=== PATIENT | female | born 1940 | race Caucasian/White ===

== ENCOUNTER → 2017-04-22 | Day surgery (SDC) | payer MEDICARE ==
[~2017-04-22] VITALS: Ht 157.5 cm; Wt 67.5 kg
[~2017-04-22] MED LIST: AMLO2.5T PO; AMOX500C PO; ASPI-110 PO; ASPI1TAB69 PO; BETA0.0557 TOPICAL; CYCLOPENTOLATE HCL 1% OPHT SOLN 2 ML BTL ONE; ENOX30P SQ; FLEC100T PO; FLURBIPROFEN 0.03% OPHT SOLN 2.5 ML BTL ONE; FLUT1SPR5 EACH NARE; GLYC1TAB17 PO; HYDR-3580 PO; HYDR25TA5 PO; LIDOCAINE HCL 2% JELLY 5 ML SYRINGE ONE; LIPI40TA PO; METO50TA11 PO; NAPR500 PO; PHENYLEPHRINE HCL 10% OPTH SOLN 5 ML BTL ONE; PROPARACAINE HCL 0.5% OPHT SOLN 15 ML BTL ONE; ROPI0.5T PO; SODIUM CHLORID 0.9% 500 ML INJ 500 ML ONE; TOBRAMYCIN/DEXAMETHASONE OPTH OINT 3.5 GM TUBE ONE; TROPICAMIDE 1% OPHT SOLN 15 ML BTL ONE
[2017-04-22 07:05] VITALS: BP 170/97; PULSE 65; RESP 16; TEMP 98.4; O2SAT 93
[2017-04-22] MEDS: TOBRAMYCIN/DEXAMETHASONE OPTH OINT 3.5 GM TUBE ONE ×2 (08:08→08:55)
[2017-04-22] MEDS: LIDOCAINE HCL 1% PF 30 ML VIAL ONE ×3 (08:08→08:42)
[2017-04-22 09:05] VITALS: TEMP 98.6
[2017-04-22 09:22] VITALS: BP 174/70; PULSE 69; RESP 14; O2SAT 97
--- NOTE | 2017-04-22 20:21 | MP ---
cc: VIKASH RAMOS M.D. [facility]# [id number] DATE OF SURGERY 04/22/17 POSTOPERATIVE DIAGNOSIS: Visually significant cataract left eye. OPERATION: Phacoemulsification with posterior chamber lens implantation, left eye. SURGEON: Vikash Ramos MD ANESTHESIA: Topical with MAC. COMPLICATIONS: None. PROCEDURE: After informed consent was obtained, the patient was brought into the operative suite and placed on appropriate monitors by the Anesthesia Service. The patient had been given dilating drops and topical lidocaine gel in the holding area. The patient's operative eye was then prepped and draped in the usual sterile fashion. A wire lid speculum was placed. Further 2% lidocaine was then dropped on the cornea prior to beginning the procedure. A paracentesis incision was made in the peripheral cornea with a 1 mm little keratome. The anterior chamber was filled with viscoelastic. The anterior chamber was then entered through a stepped, clear corneal incision using a sharp 3 mm little keratome. A circular tear capsulorrhexis was then made with a bent needle cystitome. Following hydrodissection of the lens nucleus with balance saline, phaco-emulsification of the nucleus was performed using a modified chopping technique. The remaining cortex was removed with irrigation/aspiration. The prior two procedures were both performed using the handpieces of the [employer] phaco unit. The capsular bag was then filled with viscoelastic. The intraocular lens was then injected into the capsular bag and positioned. The type of intraocular lens and its power can be found elsewhere in this chart. The remaining viscoelastic was then removed from the anterior chamber with the IA handpiece. The anterior chamber was reformed with balanced saline. The wound was then closed securely with stromal hydration. It was found to be watertight to an intraocular pressure of at least 30 mmHg by palpation. A small amount of balanced salt solution was then removed through the paracentesis site and the intraocular pressure at the end of the case was approximately 20 by palpation. All drapes were then removed. TobraDex ointment was then placed in the eye, which was closed beneath a semi-pressure patch dressing. The patient tolerated this procedure well and left the operating room awake and alert. The patient is to follow-up in my office in the morning. ADDENDUM After the clear corneal incisions were sealed watertight, an 8 mm limbal relaxing incision was made with a 600 micron little blade, centered around the 90 degree [place]. MD MATTHEW Parker/ /10:20 AM /8:19 PM
== END | disposition home or self-care (01) ==
LOC: PHSDC 06:07
PROVIDERS: ATTEND Optometrist Occupational Vision
DX: H26.9 Unspecified cataract (principal); I10 Essential (primary) hypertension; I48.0 Paroxysmal atrial fibrillation; M81.0 Age-related osteoporosis without current pathological fracture; L40.9 Psoriasis, unspecified; E78.5 Hyperlipidemia, unspecified; Z88.2 Allergy status to sulfonamides; Z88.1 Allergy status to other antibiotic agents; Z91.040 Latex allergy status; Z88.8 Allergy status to other drugs, medicaments and biological substances
CPT/HCPCS: 66984; J7040; V2632; 82948

== ENCOUNTER → 2017-06-03 | Day surgery (SDC) | payer MEDICARE ==
[~2017-06-03] VITALS: Ht 158.8 cm; Wt 65.9 kg
[~2017-06-03] MED LIST changes: -AMOX500C PO; -ASPI1TAB69 PO; +CHLORHEXIDINE GLUCONATE 2 % 1 PACK (2 CLOTHS) TOPICAL PRN; -ENOX30P SQ; -FLEC100T PO; -GLYC1TAB17 PO; -HYDR-3580 PO; +INSULIN HUMAN REGULAR 1,000 UNITS/10 ML VIAL SQ PRN; +LACTATED RINGER'S 1000 ML IV PRN; +LIDOCAINE HCL 1% PF 30 ML VIAL ONE; +LIDOCAINE HCL 2% JELLY 5 ML SYRINGE TOPICAL ONE; +METOPROLOL TARTRATE 25 MG TAB PO PRN; -NAPR500 PO; +POVIDONE IODINE 5% (ANTISEPSIS KIT) 4 APPLICATIONS EACH NARE PRN; +PROPARACAINE HCL 0.5% OPHT SOLN 15 ML BTL RIGHT EYE ONE; -SODIUM CHLORID 0.9% 500 ML INJ 500 ML ONE; +SODIUM CHLORID 0.9% 500 ML IV PRN; +TOBRAMYCIN 0.3%/DEXAMETHASONE 0.1% OPHT SUSP 5 ML BTL ONE
[2017-06-03] MEDS: TROPICAMIDE 1% OPHT SOLN 15 ML BTL RIGHT EYE SCH ×4 (06:40→06:55)
[2017-06-03] MEDS: FLURBIPROFEN 0.03% OPHT SOLN 2.5 ML BTL RIGHT EYE SCH ×4 (06:40→06:55)
[2017-06-03] MEDS: PHENYLEPHRINE HCL 10% OPTH SOLN 5 ML BTL RIGHT EYE SCH ×4 (06:40→06:55)
[2017-06-03] MEDS: CYCLOPENTOLATE HCL 1% OPHT SOLN 2 ML BTL RIGHT EYE SCH ×4 (06:40→06:55)
[2017-06-03 06:50] VITALS: BP 149/71; PULSE 64; RESP 20; TEMP 98.1; O2SAT 97
[2017-06-03 08:21] VITALS: TEMP 97.7
[2017-06-03 08:40] VITALS: BP 149/67; PULSE 69; RESP 14; O2SAT 96
--- NOTE | 2017-06-03 20:11 | MP ---
cc: VIKASH RAMOS MD [facility] #[id number] DATE OF SURGERY 06/03/17 POSTOPERATIVE DIAGNOSIS: Visually significant cataract right eye. OPERATION: Phacoemulsification with posterior chamber lens implantation, right eye. SURGEON: Vikash Ramos MD ANESTHESIA: Topical with MAC. COMPLICATIONS: None. PROCEDURE: After informed consent was obtained, the patient was brought into the operative suite and placed on appropriate monitors by the Anesthesia Service. The patient had been given dilating drops and topical lidocaine gel in the holding area. The patient's operative eye was then prepped and draped in the usual sterile fashion. A wire lid speculum was placed. Further 2% lidocaine was then dropped on the cornea prior to beginning the procedure. A paracentesis incision was made in the peripheral cornea with a 1 mm little keratome. The anterior chamber was filled with viscoelastic. The anterior chamber was then entered through a stepped, clear corneal incision using a sharp 3 mm little keratome. A circular tear capsulorrhexis was then made with a bent needle cystitome. Following hydrodissection of the lens nucleus with balance saline, phaco-emulsification of the nucleus was performed using a modified chopping technique. The remaining cortex was removed with irrigation/aspiration. The prior two procedures were both performed using the handpieces of the [employer] phaco unit. The capsular bag was then filled with viscoelastic. The intraocular lens was then injected into the capsular bag and positioned. The type of intraocular lens and its power can be found elsewhere in this chart. The remaining viscoelastic was then removed from the anterior chamber with the IA handpiece. The anterior chamber was reformed with balanced saline. The wound was then closed securely with stromal hydration. It was found to be watertight to an intraocular pressure of at least 30 mmHg by palpation. A small amount of balanced salt solution was then removed through the paracentesis site and the intraocular pressure at the end of the case was approximately 20 by palpation. All drapes were then removed. TobraDex ointment was then placed in the eye, which was closed beneath a semi-pressure patch dressing. The patient tolerated this procedure well and left the operating room awake and alert. The patient is to follow-up in my office in the morning. ADDENDUM After the clear corneal incisions were sealed watertight, an 8 mm limbal relaxing incision was made with a 600 Micron little blade, centered around the 90 degree [place]. MD MATTHEW Parker/ /10:20 AM /8:09 PM
== END | disposition home or self-care (01) ==
LOC: PHSDC 06:04
PROVIDERS: ATTEND Optometrist Occupational Vision
DX: H25.811 Combined forms of age-related cataract, right eye (principal); H43.813 Vitreous degeneration, bilateral; G25.81 Restless legs syndrome; I70.0 Atherosclerosis of aorta; E04.2 Nontoxic multinodular goiter; K21.9 Gastro-esophageal reflux disease without esophagitis; I10 Essential (primary) hypertension; E78.5 Hyperlipidemia, unspecified; J30.0 Vasomotor rhinitis; K58.9 Irritable bowel syndrome, unspecified; I48.0 Paroxysmal atrial fibrillation; N81.4 Uterovaginal prolapse, unspecified
CPT/HCPCS: 00142; 66984; J7040; V2632

== ENCOUNTER 2017-06-11 23:56 | Emergency (ER) | payer MEDICARE ==
[~2017-06-11] VITALS: Ht 160 cm; Wt 68.8 kg
[~2017-06-11 23:56] MED LIST changes: -CHLORHEXIDINE GLUCONATE 2 % 1 PACK (2 CLOTHS) TOPICAL PRN; -CYCLOPENTOLATE HCL 1% OPHT SOLN 2 ML BTL ONE; -FLURBIPROFEN 0.03% OPHT SOLN 2.5 ML BTL ONE; -INSULIN HUMAN REGULAR 1,000 UNITS/10 ML VIAL SQ PRN; -LACTATED RINGER'S 1000 ML IV PRN; -LIDOCAINE HCL 1% PF 30 ML VIAL ONE; -LIDOCAINE HCL 2% JELLY 5 ML SYRINGE ONE; -LIDOCAINE HCL 2% JELLY 5 ML SYRINGE TOPICAL ONE; -METOPROLOL TARTRATE 25 MG TAB PO PRN; -PHENYLEPHRINE HCL 10% OPTH SOLN 5 ML BTL ONE; -POVIDONE IODINE 5% (ANTISEPSIS KIT) 4 APPLICATIONS EACH NARE PRN; -PROPARACAINE HCL 0.5% OPHT SOLN 15 ML BTL ONE; -PROPARACAINE HCL 0.5% OPHT SOLN 15 ML BTL RIGHT EYE ONE; -SODIUM CHLORID 0.9% 500 ML IV PRN; -TOBRAMYCIN 0.3%/DEXAMETHASONE 0.1% OPHT SUSP 5 ML BTL ONE; -TOBRAMYCIN/DEXAMETHASONE OPTH OINT 3.5 GM TUBE ONE; -TROPICAMIDE 1% OPHT SOLN 15 ML BTL ONE
[2017-06-12 00:01] VITALS: BP 129/62; PULSE 72; RESP 16; TEMP 97.5; O2SAT 96
--- NOTE | 2017-06-12 00:57 | RADRPT ---
EXAM DATE/TIME: 06/12/2017 00:45 [place] COMPARISON: No previous studies available for comparison. INDICATIONS : Left wrist pain post fall. MEDICAL HISTORY : Arthritis. SURGICAL HISTORY : None. ENCOUNTER: Initial ACUITY: 1 day PAIN SCORE: 10/10 LOCATION: Left upper extremity FINDINGS: There are severe degenerative changes of the thumb basal joint. There is an impacted fracture of the distal radial metaphysis identified without definite intra-articular extension. No significant angula tion. Soft tissue swelling is noted. CONCLUSION: Distal radius fracture. Larry Graf MD on June 12, 2017 at 0:55 Board Certified Radiologist. This report was verified electronically.
--- NOTE | 2017-06-12 01:35 | PD ---
HPI Chief Complaint: Injury Time Seen by Provider: 01:26 Travel History International Travel<30 days: No Contact w/Intl Traveler<30days: No Traveled to known affect area: No History of Present Illness HPI 77-year-old female presents to the emergency department by private transportation the care of her spouse for evaluation of left wrist injury. Patient states approximately 11:30 PM she tripped over something in the floor in her bedroom and fell forward injuring her left wrist. Patient is right- handed. Patient does not report any other injury. Patient denies any upper extremity numbness tingling or weakness shoulder pain elbow pain or hand pain. Patient states she has severe arthritis and has chronic deformity of the wrist and thumb secondary to her arthritis but has noted area of soft tissue swelling since the fall. Patient states pain is 10 over 10 in intensity. Patient denies hitting her head having loss of consciousness injury her neck back chest ribs abdomen pelvis or other extremity. No previous injury to the left wrist. Patient takes no blood thinning agents. Patient took no medications prior to arrival to the emergency department. 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) Cardiovascular Problems: Yes (PALPATATIONS;ATHEROSCLEROSIS OF AORTA;PAT; A.FIB) High Cholesterol: Yes Chemotherapy: No Chest Pain: Yes (CHEST PAIN) Congestive Heart Failure: No COPD: No Cerebrovascular Accident: No Diabetes: No Diminished Hearing: No Endocrine: No Gastrointestinal Disorders: Yes (SPASTIC COLON;DIVERTICULOSIS; GERD; IBS) GERD: No Glaucoma: No Genitourinary: No Headaches: No Hepatitis: No Hiatal Hernia: No Hypertension: Yes Immune Disorder: Yes (psoriasis) Kidney Stones: Yes Medical other: Yes (;RESTLESS LEG SYNDROME) Musculoskeletal: Yes (ARTHRITIS;INTERVERTEBRAL DISC DISORDER;OSTEOPORSIS) Neurologic: Yes (BELLS PALSY) Psychiatric: Yes (ANXIETY) Reproductive: Yes (UTERINE PROLAPSE) Respiratory: No Myocardial Infarction: No Radiation Therapy: No Renal Failure: No Seizures: No Sickle Cell Disease: No Sleep Apnea: No Thyroid Disease: Yes (THYROID NODULE;GOITER) Ulcer: No Tetanus Vaccination: > 5 Years Influenza Vaccination: Yes ?: Not Menopausal: Yes Past Surgical History Abdominal Surgery: No AICD: No Arteriovenous Shunt: No Body Medical Devices: BILATERAL TOTAL KNEE REPLACEMENT, LEFT HIP REPLACEMENT Cardiac Surgery: Yes (ABLATION FOR AFIB) Ear Surgery: No Endocrine Surgery: No Eye Surgery: No Genitourinary Surgery: No Gynecologic Surgery: No Insulin Pump: No Joint Replacement: Yes (BILATERAL KNEES, LEFT HIP) Oral Surgery: Yes Pacemaker: No Thoracic Surgery: No Tonsillectomy: Yes Other Surgery: Yes Social History Alcohol Use: No (DENIES) Tobacco Use: No Substance Use: No (DENIES) Allergies-Medications (Allergen,Severity, Reaction): Coded Allergies: Bactrim (Verified Allergy, Severe, Rash, 06/12/17) Relafen (Verified Allergy, Severe, Hives, 06/12/17) Sulfa (Verified Allergy, Severe, Rash, 06/12/17) Latex (Verified Allergy, Intermediate, Itching, 06/12/17) Nonsteroidal Anti-Inflammatory Agts (Verified Allergy, Mild, PT DENIES ALLERGY, 06/12/17) Celebrex (Verified Adverse Reaction, Severe, HAIR LOSS, 06/12/17) Reported Meds & Prescriptions Reported Meds & Active Scripts Active Zofran Odt (Ondansetron Odt) 4 Mg Tab 4 Mg SL Q6HR PRN Lortab (Hydrocodone-Acetaminophen) 5-325 Mg Tab 0.5-1 Tab PO Q6H PRN Reported Amlodipine (Amlodipine Besylate) 2.5 Mg Tab 2.5 Mg PO DAILY Aspirin 81 (Aspirin) 81 Mg Tabdr 81 Mg PO DAILY Lipitor (Atorvastatin Calcium) 40 Mg Tab 40 Mg PO HS Metoprolol Succinate ER 24 HR (Metoprolol Succinate) 50 Mg Tab 75 Mg PO BID Review of Systems Except as stated in HPI: all other systems reviewed are Neg Physical Exam Narrative GENERAL: Well-developed well-nourished female in no acute distress no respiratory distress; GCS 15 SKIN: Warm and dry. HEAD: Normocephalic. EYES: No scleral icterus. No injection or drainage. NECK: Supple, trachea midline. No JVD or lymphadenopathy. CARDIOVASCULAR: Regular rate and rhythm without murmurs, gallops, or rubs. RESPIRATORY: Breath sounds equal bilaterally. No accessory muscle use. GASTROINTESTINAL: Abdomen soft, non-tender, nondistended. MUSCULOSKELETAL: No cyanosis, or edema. Attention left wrist soft tissue swelling with swan-neck deformity of the thumb capillary refill is brisk and less than 2 seconds per digit thumb apposition intact decreased range of motion of left wrist secondary to pain proximally no deformity at the elbow or shoulder and nontender to direct palpation. Radial and dorsalis pedis pulses 2 + to palpation bilaterally. BACK: Nontender without obvious deformity. No CVA tenderness. Data Data Last Documented VS Vital Signs Date Time Temp Pulse Resp B/P Pulse Ox O2 Delivery O2 Flow Rate FiO2 06/12/17 02:13 76 18 124/66 97 Room Air 06/12/17 00:01 97.5 Orders Wrist, Complete ([id number]) (06/12/17 ) Splint Or Brace Apply/Monitor (06/12/17 01:26) Splint Or Brace Apply/Monitor (06/12/17 01:26) Ice/Cold Pack (06/12/17 01:26) Ondansetron Odt (Zofran Odt) (06/12/17 01:45) Acetamin-Hydrocod 325-5 Mg ([place] 5-325 (06/12/17 01:45) MDM Medical Decision Making Medical Screen Exam Complete: Yes Emergency Medical Condition: Yes Medical Record Reviewed: Yes Interpretation(s) Last Impressions Wrist X-Ray 06/12/17 0000 Signed Impressions: Service Date/Time: Monday, June 12, 2017 00:45 - CONCLUSION: Distal radius fracture. Larry Graf MD Differential Diagnosis Fracture subluxation dislocation arthritis sprain strain Narrative Course Patient presents with soft tissue swelling of the left wrist after a non- syncopal slip and fall with outstretched hand concerning for wrist fracture; imaging study order Imaging study consistent with impaction was fracture of the distal radius without joint involvement or significant angulation; noted to have significant arthritic changes consistent with history of arthritis; ice applied and splinting with short arm volar splint and sling. Patient moving area and will need to follow up closely with orthopedist in her new residence and with [place] when she arrives there the next 2 days. Patient administered Lortab 5 mg IM mouth along with Zofran 4 mg Diagnosis Primary Impression: Left wrist fracture Qualified Code: S62.102A - Left wrist fracture, closed, initial encounter Referrals: Orthopedist 2 days Patient Instructions: General Instructions, Narcotic given in the ED Additional Instructions: Wear splint Apply ice intermittently to areas of soft tissue swelling for first 12-24 hours Use sling Take pain medication as prescribed as needed; use with caution as may impair judgment, delay reaction time, increased risk for fall, or cause constipation Follow-up with orthopedic surgeon call office on Wednesday to schedule follow-up appointment Return to the emergency for for pain swelling or any concerns Med/Other Pt SpecificInfo: Prescription(s) given Scripts Ondansetron Odt (Zofran Odt)4 Mg Tab4 Mg SL Q6HR PRN (Nausea/Vomiting) #10 TAB Ref 0 Prov:Leny Hernandez MD 06/12/17 Hydrocodone-Acetaminophen (Lortab)5-325 Mg Tab0.5-1 Tab PO Q6H PRN (PAIN) #12 TAB Ref 0 Prov:Leny Hernandez MD 06/12/17 Disposition: 01 DISCHARGE HOME Condition: Stable Leny Hernandez MD Jun 12, 2017 01:35
[2017-06-12] MEDS ORDERED: HYDR-3533 PO (01:41)
[2017-06-12] MEDS ORDERED: ZOFR4TAB3 SL (01:41)
[2017-06-12] MEDS ORDERED: ONDANSETRON ODT 4 MG TAB PO ONE (01:45)
[2017-06-12] MEDS ORDERED: ACETAMINOPHEN/HYDROcodone 325 MG/5 MG TAB PO ONE (01:45)
[2017-06-12 02:13] VITALS: BP 124/66; PULSE 76; RESP 18; O2SAT 97
== END 2017-06-12 02:43 | disposition home or self-care (01) ==
LOC: PHED 23:56
DX: S52.302A Unspecified fracture of shaft of left radius, initial encounter for closed fracture (principal); S52.502A Unspecified fracture of the lower end of left radius, initial encounter for closed fracture; W01.0XXA Fall on same level from slipping, tripping and stumbling without subsequent striking against object, initial encounter; Y93.9 Activity, unspecified; Y92.003 Bedroom of unspecified non-institutional (private) residence as the place of occurrence of the external cause; I10 Essential (primary) hypertension; I48.91 Unspecified atrial fibrillation; E78.00 Pure hypercholesterolemia, unspecified; G51.0 Bell's palsy
CPT/HCPCS: 29125; 73110